=== PATIENT | female | born 1950 | race Caucasian/White ===

== ENCOUNTER 2022-12-16 11:51 | Emergency (ER) | payer MEDICARE, SELFPAY ==
[2022-12-16] VITALS (46 sets, daily range): BP systolic 101–179; BP diastolic 35–118; PULSE 55–246; RESP 14–31; TEMP 37; O2SAT 83–98
--- NOTE | 2022-12-16 11:45 | RT.EKG_ITS ---
APPROVED REPORT Exam: Resting ECG Reason for Exam: Chest Pain Patient Location: E HR:85 bpm ECG Measurements Heart Rate 85 AXIS SD 170 P 48 QRSd 89 QRS 8 QT 355 T 35 QTc 423 Conclusion Sinus rhythm...normal P axis, V-rate 60- 99
[2022-12-16 12:26] LABS: Abs Immature Grans 0.03 10^3/uL (0.0-0.06); Absolute Basophil Count 0.04 10^3/uL (0.0-0.2); Absolute Eosinophil Count 0.14 10^3/uL (0.0-0.7); Absolute Lymphocyte Count 0.72 10^3/uL (1.2-3.4); Absolute Monocyte Count 0.69 10^3/uL (0.1-0.8); Absolute Neutrophil Count 5.14 10^3/uL (1.2-6.7); Basophils % 0.6; Eosinophils % 2.1; HCT 25.5 % (36.0-46.0); HGB 8.5 g/dL (11.2-15.7); Immature Grans % 0.4; Lymphocytes % 10.7; MCH 31.3 pg (27.0-33.0); MCHC 33.3 % (32.0-36.0); MCV 94 fL (80-95); MPV 9.4 fL (8.0-11.0); Monocytes % 10.2; Platelet Count 196 10^3/uL (130-400); RBC 2.72 10^6/uL (3.93-5.22); RDW 15.3 % (11.7-14.6); RDW-SD 52.2 fL; WBC 6.76 10^3/uL (4.4-10.8)
[2022-12-16] MEDS: Ondansetron 4 MG/2 ML VIAL IVP (12:26)
[2022-12-16] MEDS: Famotidine 20 MG/2 ML VIAL IVP (12:26)
--- NOTE | 2022-12-16 12:29 | ED.GENADUL_ITS ---
Discharge Plan Discharge Details Chief Complaint: Chest Pain Primary Care Provider: Cate Schmidt ED Provider: Acosta Daniel Medical Decision Making 1237?test 72-year-old female with history of COPD, recently hospitalized for cervical fracture and femur fracture, now at retirement facility, developed chest discomfort this morning that has been intermittent since onset with associated mild shortness of breath and dizziness. Initial EKG was reviewed and interpreted by me: Please report, sinus rhythm 85 bpm, normal axis, nondiagnostic. No STEMI. Concern for acute life-threatening pulmonary embolism. Plan to obtain CT of the chest. Initial labs reviewed and patient is anemic with hemoglobin of 8.5. Unclear of baseline as no prior labs to review. I will attempt obtain outside hospital records. -- I reviewed outside [place] [facility] summary [place]/12/2022, hemoglobin noted to be stable at 8.1. --CT of the head was interpreted by radiology: Negative. CT of the chest was interpreted radiology: No PE. No acute process. --Additional labs reviewed and hypokalemia noted. I will give potassium chloride 20 mill equivalents IV and 20 mill equivalents by mouth. Patient reassessed after Mylanta and Pepcid. She notes complete resolution of pain I suspect symptoms related to GERD. Plan for delta troponin. Care signed out to Dr. Mina with plan to follow-up on delta troponin. Lab Data Lab results reviewed: Yes I reviewed the patient's lab results. Labs: Laboratory Tests Range/Units 12/16/22 12/16/22 12:20 12:20 WBC (4.4-10.8) 10^3/uL 6.76 RBC (3.93-5.22) 10^6/uL 2.72 L Hgb (11.2-15.7) g/dL 8.5 L Hct (36.0-46.0) % 25.5 L MCV (80-95) fL 94 MCH (27.0-33.0) pg 31.3 MCHC (32.0-36.0) % 33.3 RDW (11.7-14.6) % 15.3 H Plt Count (130-400) 10^3/uL 196 MPV (8.0-11.0) fL 9.4 Immature Gran % 0.4 Neutrophils % 76.0 Lymphocytes % 10.7 Monocytes % 10.2 Eosinophils % 2.1 Basophils % 0.6 Nucleated RBC % (0.0-0.3) % 0.0 Absolute Neutrophils (1.2-6.7) 10^3/uL 5.14 Absolute Lymphocytes (1.2-3.4) 10^3/uL 0.72 L Absolute Monocytes (0.1-0.8) 10^3/uL 0.69 Absolute Eosinophils (0.0-0.7) 10^3/uL 0.14 Absolute Basophils (0.0-0.2) 10^3/uL 0.04 Sodium (136-145) mmol/L 136 Potassium (3.5-5.1) mmol/L 3.0 L Chloride (98-107) mmol/L 96 L Carbon Dioxide (21.0-32.0) mmol/L 33.8 H Anion Gap (3-11) mmol/L 6.2 BUN (7-18) mg/dL 8 Creatinine (0.55-1.02) mg/dL 1.1 H Est GFR (CKD-EPI 2020) (mL/min/1.73m2) 52.73 Glucose (74-106) mg/dL 109 H Calcium (8.5-10.1) mg/dL 8.7 Magnesium (1.8-2.4) mg/dL 2.0 Total Bilirubin (0.2-1.0) mg/dL 0.7 AST (15-37) U/L 37 ALT (14-59) U/L 46 Alkaline Phosphatase (46-116) U/L 81 Troponin I (<or=60) ng/L < 50 Total Protein (6.4-8.2) g/dL 6.2 L Albumin (3.4-5.0) g/dL 3.0 L HPI General Mode of arrival: EMS . Date/Time Provider Initiated Documentation: 12/16/22 11:54 . Limitations to Documentation: no limitations . Information obtained by: patient, RN/MD and EMS . HPI Narrative: 72-year-old female with multiple medical problems including history of COPD, here with chief complaint of chest discomfort. Patient was recently [place] [facility] [place] and cervical fracture that occurred as a result of fall last week. She had ORIF of the right femur and splinting with cervical collar. She was sent to [facility] and rehab for continued rehabilitation. She notes today she woke up with chest discomfort that feels like heartburn. Discomfort more severe than typical heartburn. Pain comes and goes. She has associated mild shortness of breath. Patient does use oxygen at night but does not use it during the day typically. Patient also notes some mild associated dizziness today. She has persistent headache since her fall. 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 Anxiety Cervical dysplasia COPD (chronic obstructive pulmonary disease) Edema Fibrocystic breast changes, bilateral Fracture closed, fibula, shaft Fracture of wrist Fracture, foot Fracture, tibia Osteoporosis Raynauds disease Tobacco abuse Vitamin D deficiency Surgical History Colonoscopy - IV Sedation open repair of right wrist fracture open repair of tibia and fibula Replacement of total knee joint Social History Smoking risk assessment performed?: No Housing: assisted living facility Do you feel safe at home: Yes Do you feel safe in your relationship?: Yes Exam Const General: cooperative and no acute distress HENMT Mouth: moist mucous membranes Eyes Conjunctivae: normal conjunctivae Sclera: normal sclerae Neck Neck: trachea midline and supple Resp Auscultation: clear to auscultation bilaterally, no rales, no rhonchi and no wheezes Cardio Rate: regular rate and not tachycardic Rhythm: regular rhythm Heart Sounds: no gallops, no murmurs and no rubs GI Palpation: soft, not firm, no guarding, no masses, not rigid and nontender Skin General skin exam: no rashes or lesions noted Neuro General: patient alert, patient awake and tone normal Extrem General: edema Laterality: right (1+) Psych Appearance: grossly normal Mental Status: mental status grossly normal Course Vital Signs Vital signs: Vital Signs Temperature 37.0 C 12/16/22 11:48 Pulse 89 12/16/22 11:48 Respiratory Rate 18 12/16/22 11:48 Blood Pressure 154/63 H 12/16/22 11:48 Pulse Oximetry 96 12/16/22 11:48 Temperature 37.0 C 12/16/22 11:48 Temperature Source Skin 12/16/22 11:48 Pulse 89 12/16/22 11:48 Respiratory Rate 18 12/16/22 11:48 Blood Pressure 154/63 H 12/16/22 11:48 Blood Pressure Position Supine 12/16/22 11:48 Pulse Oximetry 96 12/16/22 11:48 Oxygen Delivery Method Room Air 12/16/22 11:48 Oxygen Flow Rate 0 12/16/22 11:48 Pain Level 3 12/16/22 11:48 Lab/Test Results Lab/Test Results: Laboratory Tests Range/Units 12/16/22 12:20 WBC (4.4-10.8) 10^3/uL 6.76 RBC (3.93-5.22) 10^6/uL 2.72 L Hgb (11.2-15.7) g/dL 8.5 L Hct (36.0-46.0) % 25.5 L MCV (80-95) fL 94 MCH (27.0-33.0) pg 31.3 MCHC (32.0-36.0) % 33.3 RDW (11.7-14.6) % 15.3 H Plt Count (130-400) 10^3/uL 196 MPV (8.0-11.0) fL 9.4 Immature Gran % 0.4 Neutrophils % 76.0 Lymphocytes % 10.7 Monocytes % 10.2 Eosinophils % 2.1 Basophils % 0.6 Nucleated RBC % (0.0-0.3) % 0.0 Absolute Neutrophils (1.2-6.7) 10^3/uL 5.14 Absolute Lymphocytes (1.2-3.4) 10^3/uL 0.72 L Absolute Monocytes (0.1-0.8) 10^3/uL 0.69 Absolute Eosinophils (0.0-0.7) 10^3/uL 0.14 Absolute Basophils (0.0-0.2) 10^3/uL 0.04
--- NOTE | 2022-12-16 12:30 | DI.CT_ITS ---
Exam(s) CT HEAD WO EXAM: CT HEAD WO CLINICAL HISTORY: headache, recent fall. TECHNIQUE: Imaging Protocol: Axial computed tomography images with coronal and sagittal reformatted images were created and reviewed COMPARISON: No exams were available for comparison FINDINGS: There are no skull fractures. Mild fluid noted in left maxillary sinus. Other paranasal sinuses are clear. There is no evidence of intracranial hemorrhage, mass effect, or shift of midline structures. There are no extra-axial fluid collections. The ventricles are not enlarged or shifted and there is no blo od within the ventricular system nor within the basal cisterns. There is symmetrical bilateral periventricular hypodensity consistent with chronic small vessel disea se. No obvious acute infarct IMPRESSION: No acute intracranial findings on this noninfused CT scan of the brain. No skull fractures. Some mucosal thickening and small amount of fluid noted in the left maxillary si nus. RADIATION DOSE DELIVERED: 603.8mGy.cm Total DLP DATA REPOSITORY: All CT scans at this facility are submitted to the National Radiology Data Registry (NRDR) Dose Index Registry (DIR) with the [employer] ([employer]). RADIATION OPTIMIZATION: All CT scans at this facility use at least one of these dose optimization te chniques: automated exposure control; mA and/or kV adjustment per patient size (includes targeted exa ms where dose is matched to clinical indication); or iterative reconstruction.
--- NOTE | 2022-12-16 12:33 | DI.CT_ITS ---
Exam(s) CT CHEST PE CTA EXAM: CT CHEST PE CTA CLINICAL HISTORY: recent femur fx, chest pain, sob. TECHNIQUE: Imaging Protocol: CT angiography of the chest was performed using pulmonary embolus lisseth col. Multi planar reconstructions were performed. CONTRAST MATERIAL: Intravenous: Omnipaque 350 Contrast volume: 100 cc COMPARISON: CT CT HEAD WO from 12/16/2022 FINDINGS: CHEST: PULMONARY ARTERIES: There are no intraluminal filling defects to suggest acute pulmonary emboli.No ev idence of pulmonary infarction. LUNGS: There is symmetrical scarring in the lung apices.. No confluent infiltrates nor pleural effus ions. No ominous pulmonary nodules. No findings in the trachea and mainstem bronchi. MEDIASTINUM: There is no hilar nor mediastinal adenopathy. Visualized thyroid unremarkable. CARDIAC: Heart size is upper normal. There is no pericardial effusion.Caliber of the thoracic aorta is within normal limits. No evidence of aortic dissection. There is no significant shift of the inte rventricular septum. PARTIALLY VISUALIZED UPPERMOST ABDOMEN: Gallbladder surgically absent.. Spleen size normal. OSSEOUS: No significant osseous lesions.Multiple nonacute left rib fractures noted. These are mostly healed. IMPRESSION: 1. No evidence of acute pulmonary emboli. No evidence of pulmonary infarction.No pleural effusions. 2. No acute intrathoracic findings. 3. Healed left-sided rib fractures. Called results to ER physician. RADIATION DOSE DELIVERED: 272.74mGy.cm Total DLP DATA REPOSITORY: All CT scans at this facility are submitted to the National Radiology Data Registry (NRDR) Dose Index Registry (DIR) with the [employer] ([employer]). RADIATION OPTIMIZATION: All CT scans at this facility use at least one of these dose optimization te chniques: automated exposure control; mA and/or kV adjustment per patient size (includes targeted exa ms where dose is matched to clinical indication); or iterative reconstruction.
[2022-12-16 12:45] LABS: ALT 46 U/L (14-59); AST 37 U/L (15-37); Alkaline Phosphatase 81 U/L (46-116); Anion Gap 6.2 mmol/L (3-11); BUN 8 mg/dL (7-18); Bilirubin, Total 0.7 mg/dL (0.2-1.0); CO2 33.8 mmol/L (21.0-32.0); CREATININE 1.1 mg/dL (0.55-1.02); Calcium 8.7 mg/dL (8.5-10.1); Chloride 96 mmol/L (98-107); Estimated GFR 52.73 (mL/min/1.73m2); Glucose 109 mg/dL (74-106); Sodium 136 mmol/L (136-145); Total Protein 6.2 g/dL (6.4-8.2); Troponin I < 50 ng/L (<or=60)
[2022-12-16] MEDS: Normal Saline - Diluent 50 ML VIAL IJ (13:47)
[2022-12-16] MEDS: Omnipaque 350 MG/ML 500 ML BTL-Imaging package IJ (13:48)
[2022-12-16] MEDS: Potassium Chloride 20 MEQ TABCR PO (15:01)
[2022-12-16] MEDS: Mylanta Suspension 30 ML CUP PO (15:01)
[2022-12-16] MEDS: POTASSIUM CHLORIDE 20 MEQ/100 ML BAG 50 MEQ IVPB (15:01)
--- NOTE | 2022-12-16 15:46 | ED.PROG_ITS ---
Date of service: 12/16/22 Time of Service: 15:46 Medical Decision Making I have received sign-out and have seen and examined the patient. The patient is a 72 yo F who recently fell and broke her neck and R femur. She was transferred to [facility] where she was treated with a hard cervical collar and ORIF of the L f emur. The patient told me that she had a positive stress test 1-2 years ago at [facility] did not give her all the medications on her medication list - and they seem annoyed because they were ignored. They tell me that she did not receive her potassium supplement while she was at [facility]. She says she was not discharged with Rxs for her usual meds, including her SLNG when she was discharged to a local rehab. She is currently pain free. Medical Records Medical records reviewed: Yes I reviewed the patient's medical records. Imaging Data Radiologic Study: Imaging: CT Scan (Chest with contrast) Radiologist's impression: IMPRESSION: 1. No evidence of acute pulmonary emboli.? No evidence of pulmonary infarction.No pleural effusions. 2. No acute intrathoracic findings. 3. Healed left-sided rib fractures. Lab Data Lab results reviewed: Yes I reviewed the patient's lab results. Lab results narrative: The patient has had 2 negative troponins. She is anemic. There is no previous available for comparison. It is not unusual to be anemic after ORIF of the right femur. ECG Data Attestation: I personally reviewed and interpreted this ECG (s) as follows: Prior ECG tracings: available for review Exam Narrative Exam Narrative: The patient is alert and oriented in no acute distress. She is wearing a c- collar and has a well-healed surgical scar over the right lower leg. Narrative I have reviewed the patient's labs and EKGs. As well as the CT scan. We will discharge her home with outpatient follow-up with cardiology and primary care to recheck her H&H. I will advise her to return here for any new or worrisome symptoms. She was previously prescribed nitroglycerin and I will discharge her with nitroglycerin to take back to rehab. I have discussed the patient's anemia and she tells me she did have a transfusion while at [facility]. I will discharge her back to rehab and advised that she have a repeat H&H within a week. I will prescribe her nitroglycerin but I have advised her to return if she is having frequent chest pain or any new or worrisome symptoms. She is re questing a tramadol and something to eat. The patient and her voiced understanding agreement with the discharge plan. All her questions and concerns were addressed prior to discharge Critical Care Time Critical Care Time Critical Care Time: Yes Total Critical Care Time: 42 Attestation: This includes bedside care, review of old records. Discussion with patient and family interpretation of labs and EKGs, discussion with rehab. Sign Out Sign Out Data: Sign Out Comment: Follow-up on delta troponin and reassess patient for disposition. Last updated by Acosta Daniel MD at 12/16/22 15:45 Discharge Plan Disposition Patient Disposition: Long Term Facility(SNF) Condition: Improving Discharge Details Clinical Impression: Chest pain, Hypokalemia, GERD (gastroesophageal reflux disease), Anemia Primary Care Provider: Cate Schmidt ED Provider: Tracy Mina Home Meds and New Rx's Prescriptions: New pantoprazole 20 mg tablet,delayed release (DR/EC) 20 mg PO DAILY Qty: 30 1RF famotidine [Pepcid] 20 mg tablet 20 mg PO BID Qty: 60 0RF nitroglycerin 0.4 mg tablet, sublingual 0.4 mg sublingual Q5M PRNQty: 180 0RF Rx Instructions: do not exceed 3 doses per episode Continued latanoprost 0.005 % drops 0.005 drp ophthalmic (eye) DAILY Patient Comments: place 1 drop into right eye at bedtime diltiazem HCl 180 mg capsule,extended release 24hr 180 mg PO DAILY calcium carbonate-vitamin D3 600 mg-5 mcg (200 unit) Tablet 1 tab PO DAILY acyclovir 400 mg tablet 400 mg PO DAILY tramadol 50 mg tablet 50 mg PO PRN PRN Patient Comments: take 1 tablet by mouth twice a day if needed acetaminophen 500 mg Tablet 500 mg PO BID triamcinolone acetonide 0.1 % cream 0.1 applic TOPICAL BID Patient Comments: apply A thin layer to affected area twice a day potassium chloride 20 mEq tablet,ER particles/crystals 20 meq PO DAILY potassium chloride 20 mEq tablet,ER particles/crystals 20 meq PO DAILY magnesium oxide 400 mg (241.3 mg magnesium) Tablet 400 mg PO DAILY baclofen 10 mg tablet 10 mg PO Q8H PRN PRN folic acid 1 mg Tablet 1 mg PO DAILY aspirin 81 mg Tablet 81 mg PO DAILY furosemide 20 mg tablet 20 mg PO DAILY ibuprofen 600 mg Tablet 600 mg PO PRN PRN rosuvastatin 40 mg tablet 40 mg PO HS bupropion HCl 300 mg tablet extended release 24 hr 300 mg PO DAILY duloxetine 60 mg capsule,delayed release(DR/EC) 60 mg PO DAILY zoledronic [id number] [Reclast] 5 mg/100 mL Piggyback 5 device IV DAILY polyethylene glycol 3350 [Miralax] 17 gram Powder In Packet 17 g PO DAILY nitroglycerin 0.4 mg tablet, sublingual 0.4 mg sublingual PRN PRN budesonide-formoterol [Symbicort] 160-4.5 mcg/actuation Hfa Aerosol Inhaler 2 puff INHALATION BID multivit no.50-iron comp-folic 155-1,000 mg iron-mcg Capsule 1 cap PO DAILY (DME) Oxygen Tank Patient Comments: 2 L via linotype mechanic at night and prn during daytime Discharge Instructions Instructions: Chest Pain (ED), Hypokalemia (ED), GERD (Gastroesophageal Reflux Disease) (ED) Additional Instructions: Please contact your primary care physician to arrange follow-up. Ask about a follow-up with cardiology because of your positive stress test at [facility] a year ago. Return to the ER immediately for any worsening or new concerning symptoms. We recommend that you have your hematocrit and hemoglobin rechecked this week to make sure it is not falling and you do not need another blood transfusion. I have prescribed sublingual nitroglycerin, which you were prescribed previously. You should take 1 tablet every 5 minutes as needed for chest pain up to 3 doses. Referrals: Cate Schmidt [Primary Care Provider] - Discharge Data Discharge Physician: Tracy Mina
[2022-12-16 16:51] LABS: Troponin I < 50 ng/L (<or=60)
[2022-12-16] MEDS: traMADol 50 MG TAB PO (17:56)
== END 2022-12-16 18:34 | disposition skilled nursing facility (03) ==
LOC: ER 22:42
PROVIDERS: Student in an Organized Health Care Education/Training Program; Emergency Provider Emergency Medicine Emergency Medical Services; PCP Internal Medicine
DX: R07.89 Other chest pain (principal); R51.9 Headache, unspecified; R06.02 Shortness of breath; W19.XXXA Unspecified fall, initial encounter; Z87.81 Personal history of (healed) traumatic fracture; J44.9 Chronic obstructive pulmonary disease, unspecified; R42 Dizziness and giddiness
CPT/HCPCS: 36415; 71275; 80053; 93005; 96365; 96366; 96375; 99291; 70450; 83735; 84484; 85025; 93010; J2405; J3480